=== PATIENT | male | born 1965 | race Caucasian/White ===

== ENCOUNTER 2020-12-27 15:31 | Outpatient (CLI) | payer OTHER, SELFPAY ==
--- NOTE | 2020-12-27 15:45 | USCV_ITS ---
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 Dr Deborah Robertson MD FAC (Electronically Signed) Final Date: 29 December 2020 08:43 S
== END 2020-12-27 15:32 | disposition home or self-care (01) ==
PROVIDERS: PCP Family Medicine; Visit Provider Podiatrist Foot & Ankle Surgery
DX: R09.89 Other specified symptoms and signs involving the circulatory and respiratory systems (principal)
CPT/HCPCS: 93923

== ENCOUNTER 2021-03-07 09:32 | Outpatient (CLI) | payer OTHER, SELFPAY ==
--- NOTE | 2021-03-07 09:35 | CT_ITS ---
WS: [id number] NONCONTRAST CT OF THE RIGHT LOWER EXTREMITY TECHNIQUE: Noncontrast CT right lower extremity with coronal and sagittal reformatted images. CLINICAL INFORMATION: LOWER LEG PAIN/SWELLING COMPARISON: None. DLP: 1084.[address] scans at [facility] use at least one of these dose optimization techniques: automated e xposure control; mA and/or kV adjustment per patient size (includes targeted exams where dose is matc hed to clinical indication); or iterative reconstruction. FINDINGS: Mild soft tissue edema with subcutaneous induration and inflammatory stranding in the anterior lower leg soft tissues overlying the tibia. This extends from the patella to the ankle. No evidence of drai nable abscess or fluid collection. Findings compatible with cellulitis. Mild associated skin thickeni ng. Minimal induration and inflammatory stranding in the posterior lower leg soft tissues. No evidenc e of osteomyelitis. Normal medial and lateral malleolus. Normal tibiotalar joint. CT/CT lower leg RT wo con* [id number] IMPRESSION: 1. Subcutaneous induration with inflammatory stranding in the anterior subcuta neous soft tissues extending from the patella to the ankle compatible with cell ulitis. No evidence of drainable abscess or fluid collection. 2. Small amount of cellulitis in the dorsal lower leg soft tissues. 3. No evidence of osteomyelitis. 4. No other significant findings.
== END 2021-03-07 09:33 | disposition home or self-care (01) ==
LOC: RAD 09:33
PROVIDERS: PCP Family Medicine; Visit Provider Family Medicine
DX: M79.661 Pain in right lower leg (principal); M79.89 Other specified soft tissue disorders; L03.115 Cellulitis of right lower limb
CPT/HCPCS: 73700

== ENCOUNTER 2022-06-05 08:52 | Emergency (ER) | payer OTHER, SELFPAY ==
[2022-06-05 09:05] VITALS: BP 147/93; PULSE 69; RESP 18; TEMP 36.6; O2SAT 99
--- NOTE | 2022-06-05 09:33 | ECG_ITS ---
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 Measurements Intervals [place] Rate: 60 P: 22 NC: 142 QRS: -16 QRSD: 96 T: 3 QT: 456 QTc: 456 Interpretive Statements SINUS RHYTHM POSSIBLE RIGHT VENTRICULAR CONDUCTION DELAY [RSR (QR) IN V1/V2] VOLTAGE CRITERIA FOR LVH [MEETS CRITERIA IN ONE OF: R(aVL), S(V1), R(V5), R(V5/V6)+S(V1)] No previous ECG available for comparison Electronically Signed On 06-05-2022 10:10:27 CDT by Cristobal Mcfarland M.D. [id number]
--- NOTE | 2022-06-05 09:38 | USCV_ITS ---
Brian Amadou Age: 57 Gender: M : 1965 Exam Date: 06/05/2022 10:26 Ordering Phys: Ayad Lujan DO Technologist: CT Exam Location: [facility] – [place]_ Indication: PROCEDURES: Venous duplex imaging was performed in only the right lower extremity. The following venous structures were evaluated: common femoral vein, profunda vein, proximal portion of the greater saphenous vein, superficial femoral vein, and the popliteal vein. In addition, the posterior tibial and peroneal trunk were evaluated. On the left side, the common femoral, superficial femoral, profunda femoral, popliteal, posterior tibial, greater saphenous veins, and the peroneal trunk were identified and interrogated in the standard fashion. These veins were found to be easily compressible with spontaneous blood flow. No evidence of insufficiency or thrombus noted. CONCLUSIONS No evidence of right lower extremity DVT. Cory Navarro MD (Electronically Signed) Final Date: 05 June 2022 11:27 S
[2022-06-05 09:59] LABS: Basophils # 0.1 10^3/uL (0.0-0.1); Basophils % 0.7 %; Eosinophils % 0.4 %; Hematocrit 45.3 % (42.0-52.0); Hemoglobin 15.6 g/dL (11.7-16.6); Lymphocytes # 1.5 10^3/uL (0.8-4.8); Lymphocytes % 18.8 %; Mean Corpuscular HGB Conc 34.4 g/dL (30.0-36.0); Mean Corpuscular Hemoglobin 30.4 pg (28.0-34.0); Mean Corpuscular Volume 88.1 fl (80-94); Mean Platelet Volume 10.3 fL (7.4-10.4); Monocytes # 0.8 10^3/uL (0.2-0.9); Monocytes % 10.1 %; Neutrophils % 69.6 %; Nucleated Red Blood Cells % 0 %; Platelet Count 274 10^3/cmm (130-400); Red Blood Count 5.14 10^6/uL (4.1-5.3); Red Cell Distribution Width 12.4 % (12.1-15.1)
[2022-06-05] MEDS: sodium chloride 0.9% 1,000 ML 999 ML IV (10:11)
[2022-06-05] MEDS: ondansetron 2 mg/ML SDV 2 mL 4 MG IVP (10:11)
--- NOTE | 2022-06-05 10:21 | ED_ITS ---
HPI - Dizziness General: Chief Complaint: Dizziness Stated Complaint: nauseas/lethargy/cant eat/drink Time Seen by Provider: 06/05/22 08:54 Source: patient Mode of arrival: ambulatory History of Present Illness: HPI Narrative: 57-year-old male presents to the emergency room with complaints of nausea vomi ting diarrhea that began a couple of days ago according to the patient. 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 He was being treated for his cellulitis of the right lower leg. He had been given a prescription for Bactrim advised to take it if he felt like the cellulitis was returning. He has not noticed redness inflammation or induration but has noticed some swelling of the lower extremity. He is not currently had any orthopnea MD elicited complaint: lightheadedness Onset (ago): day(s) Timing: gradual onset Exacerbating factors: nothing Relieving factors: nothing Associated symptoms: Denies abnormal vaginal bleeding, change in hearing, chest pain, chills, cough, diaphoresis, ear discharge, ear pressure, fevers/chills, headache(s), malaise, nausea, nasal congestion, palpitations, rash, short of breath, syncope, tinnitus, vomiting or weakness Review of Systems Const: Denies: fever(s), chills, malaise or diaphoresis ENMT: Denies: ear discharge, change in hearing, tinnitus or nasal congestion Card: Denies: chest pain, palpitations or syncope Resp: Denies: dyspnea, productive cough or non-productive cough GI: Denies: nausea or vomiting : Denies: flank pain, dysuria, urinary frequency or urinary urgency Skin/Breast: Denies: rash or pruritus Neuro: Denies: headache(s) PFSH ED PFSH: Medical History Enthesopathy of left hip region Hypertension Lumbar post-laminectomy syndrome Peripheral polyneuropathy Venous stasis dermatitis of right lower extremity Social History Smoking and tobacco status: never smoked Physical Exam Const: GENERAL APPEARANCE: cooperative and comfortable ORIENTATION/CONSCIOUSNESS: Yes awake, Yes oriented to person, Yes oriented to place and Yes oriented to time HENMT: COMMON NORMALS: normocephalic, atraumatic and hearing grossly normal bilaterally HEAD & SCALP: normocephalic and atraumatic Resp: COMMON NORMALS: normal respiratory effort, No retractions, No use of accessory muscles and clear to auscultation bilaterally AUSCULTATION: clear to auscultation bilaterally Cardio: COMMON NORMALS: regular rate, regular rhythm and No murmurs present (Cardio) RATE: regular rate RHYTHM: regular rhythm GI: COMMON NORMALS: Soft to palpation and No hepatosplenomegaly present AUSCULTATION: Yes normoactive bowel sounds PALPATION: Yes Soft to palpation, No Tenderness to palpation present (GI), No Guarding due to palpation present (GI) and Yes No hepatosplenomegaly present Extremity: COMMON NORMALS: normal to inspection, capillary refill normal and no calf tenderness OTHER: Mild edema right lower leg. No induration no redness is not warm to the touch Neuro: SENSORIUM/ORIENTATION: Yes oriented to person, Yes oriented to place and Yes oriented to time Skin: COMMON NORMALS: no rashes or lesions noted GENERAL SKIN EXAM: no rashes or lesions noted Course Vital Signs: Vital signs: Vital Signs Temperature 98 F 06/05/22 09:05 Pulse Rate 75 06/05/22 13:47 Respiratory Rate 15 06/05/22 13:47 Blood Pressure 158/91 06/05/22 13:47 Pulse Oximetry 94 06/05/22 13:47 Oxygen Delivery Me thod Room Air 06/05/22 09:05 MDM - Dizziness Medical Decision Making Patient complaining nausea dizziness. Decreased appetite and some diarrhea. Suspect it may be in part due to his antibiotics. CBC is unremarkable CMP negative. He does have urinary retention of 300 in his bladder after voiding. Medical Records I reviewed the patient's medical records. Lab Data I reviewed the patient's lab results. 06/05/22 09:44 06/05/22 09:44 Laboratory Results WBC 8.0 10^3/uL (4.0-10.0) 06/05/22 09:44 RBC 5.14 10^6/uL (4.1-5.3) 06/05/22 09:44 Hgb 15.6 g/dL (11.7-16.6) 06/05/22 09:44 Hct 45.3 % (42.0-52.0) 06/05/22 09:44 MCV 88.1 fl (80-94) 06/05/22 09:44 MCH 30.4 pg (28.0-34.0) 06/05/22 09:44 MCHC 34.4 g/dL (30.0-36.0) 06/05/22 09:44 RDW 12.4 % (12.1-15.1) 06/05/22 09:44 Plt Count 274 10^3/cmm (130-400) 06/05/22 09:44 MPV 10.3 fL (7.4-10.4) 06/05/22 09:44 Neut % (Auto) 69.6 % 06/05/22 09:44 Lymph % (Auto) 18.8 % 06/05/22 09:44 [place] % (Auto) 10.1 % 06/05/22 09:44 Eos % (Auto) 0.4 % 06/05/22 09:44 Baso % (Auto) 0.7 % 06/05/22 09:44 Neut # (Auto) 5.60 10^3/uL (1.8-7.7) 06/05/22 09:44 Lymph # (Auto) 1.5 10^3/uL (0.8-4.8) 06/05/22 09:44 [place] # (Auto) 0.8 10^3/uL (0.2-0.9) 06/05/22 09:44 Eos # (Auto) 0.0 10^3/uL (0.0-0.8) 06/05/22 09:44 Baso # (Auto) 0.1 10^3/uL (0.0-0.1) 06/05/22 09:44 Nucleated RBC % (auto) 0 % 06/05/22 09:44 Nucleated RBCs # 0.0 /100WBC 06/05/22 09:44 Sodium 135 mmol/L (136-145) L 06/05/22 09:44 Potassium 4.0 mmol/L (3.5-5.1) 06/05/22 09:44 Chloride 99 mmol/L (98-107) 06/05/22 09:44 Carbon Dioxide 22 mmol/L (22-29) 06/05/22 09:44 Anion Gap 18.0 (5-19) 06/05/22 09:44 BUN 13 mg/dL (6-20) 06/05/22 09:44 Creatinine 1.1 mg/dL (0.7-1.2) 06/05/22 09:44 GFR Calculation 68.5 mL/min (90-130) L 06/05/22 09:44 Glucose 100 mg/dL (65-115) 06/05/22 09:44 Calculated Osmolality 280 mOsm/kg (285-295) L 06/05/22 09:44 Calcium 9.0 mg/dL (8.5-10.5) 06/05/22 09:44 Total Bilirubin 0.4 mg/dL (0.15-1.2) 06/05/22 09:44 AST 18 U/L (0-40) 06/05/22 09:44 ALT 17 U/L (0-41) 06/05/22 09:44 Alkaline Phosphatase 91 U/L (40-130) 06/05/22 09:44 Total Protein 7.2 g/dL (6.6-8.7) 06/05/22 09:44 Albumin 4.5 g/dL (3.5-5.2) 06/05/22 09:44 Globulin 2.7 g/dL (1.3-4.6) 06/05/22 09:44 Urine Color Yellow (Yellow) 06/05/22 13:00 Urine Appearance Hazy (CLEAR) A 06/05/22 13:00 Urine pH 6 (5-7) 06/05/22 13:00 Ur Specific [employer] 1.010 (1.005-1.030) 06/05/22 13:00 Urine Protein Neg (Negative) 06/05/22 13:00 Urine Glucose (UA) Norm (Normal) 06/05/22 13:00 Urine Ketones 1+ (Negative) H 06/05/22 13:00 Urine Blood Neg (Negative) 06/05/22 13:00 Urine Nitrate Positive (Negative) H 06/05/22 13:00 Urine Bilirubin Neg (Negative) 06/05/22 13:00 Urine Urobilinogen 1 mg/dL (Negative) H 06/05/22 13:00 Ur Leukocyte Esterase Trace (Negative) H 06/05/22 13:00 Urine RBC Rare /hpf (0-2) 06/05/22 13:00 Urine WBC 15-25 /hpf (0-5) H 06/05/22 13:00 Ur Squamous Epith Cells 0-4 /hpf (0-5) H 06/05/22 13:00 Amorphous Sediment Not Reportable 06/05/22 13:00 Urine Bacteria 4+ /hpf (NONE) H 06/05/22 13:00 Discharge Plan Discharge Patient Disposition: Home Clinical Impression: Urinary retention, Cellulitis of right lower leg, Leg edema, right Condition: Stable Prescriptions: New doxycycline hyclate 100 mg capsule 100 mg PO BID 10 Days Qty: 20 0RF tamsulosin 0.4 mg capsule 0.4 mg PO DAILY Qty: 30 0RF Discontinued sulfamethoxazole-trimethoprim [Bactrim DS] 800-160 mg tablet 1 tab PO Q12H 10 Days Qty: 20 5RF No Action tramadol 50 mg tablet 50 mg PO TID PRN (Reason: Pain) (DME) AFO to the right See Rx Instructions .Route .MEDSUPPLY Qty: 1 0RF Rx Instructions: As directed Alpha & [place] silver sulfadiazine [Silvadene] 1 % cream 1 applic topical BID Qty: 50 0RF Rx Instructions: apply a 1.5 mm thickness clotrimazole 1 % cream 1 applic topical BID 14 Days Qty: 15 5RF meloxicam 7.5 mg tablet 7.5 mg PO DAILY omeprazole 20 mg Capsule,Delayed Release(Dr/Ec) 20 mg PO DAILY Lasix 20 mg Tablet 20 mg PO DAILY Cymbalta 60 mg Capsule,Delayed Release(Dr/Ec) 60 mg PO DAILY Bystolic 10 mg tablet 10 mg PO DAILY Discharge Orders: Discharge ED (Routine); Ordered 06/05/22 Ordered By: Ayad Lujan Referrals: Angel Lee DO [Primary Care Provider] - Discharge Diet: Usual diet Discharge Activity: Increase activity as tolerated Patient Instructions: Opioid Safety, Pain Management Activity Restrictions/Additional Instructions: You were seen for generally not feeling well. Recommend that he stop the Bactrim and switch to doxycycline follow-up with your doctor within the next week. You also had urinary retention recommend that you use the [place] leave it in place for at least a week start tamsulosin and follow-up with your doctor. Return if you have further problems. Coding Level of Care Code ED [employer] Executive for Nikki Matute
[2022-06-05 10:22] LABS: Alanine Aminotransferase 17 U/L (0-41); Albumin Level 4.5 g/dL (3.5-5.2); Alkaline Phosphatase 91 U/L (40-130); Aspartate Amino Transferase 18 U/L (0-40); Blood Urea Nitrogen 13 mg/dL (6-20); Carbon Dioxide 22 mmol/L (22-29); Chloride 99 mmol/L (98-107); Globulin 2.7 g/dL (1.3-4.6); Glomerular Filtration Rate 68.5 mL/min (90-130); Glucose 100 mg/dL (65-115); Osmolality Calculated 280 mOsm/kg (285-295); Sodium 135 mmol/L (136-145); Total Bilirubin 0.4 mg/dL (0.15-1.2); Total Protein 7.2 g/dL (6.6-8.7)
[2022-06-05 11:09] VITALS: BP 148/105; PULSE 72; RESP 16; O2SAT 99
[2022-06-05 12:09] VITALS: BP 146/85; PULSE 62; RESP 16; O2SAT 97
[2022-06-05 13:09] VITALS: BP 146/99; PULSE 75; RESP 18; O2SAT 98
[2022-06-05 13:33] LABS: Blood Urine Neg (Negative); Glucose Urine UA Norm (Normal); Ketones Urine 1+ (Negative); Nitrate Urine Positive (Negative); Protein Urine Neg (Negative); Urine Appearance Hazy (CLEAR); Urine Color Yellow (Yellow); pH Urine 6 (5-7)
[2022-06-05 13:34] LABS: Add Urine Microscopic? YES; Bilirubin Urine Neg (Negative); Leukocyte Esterase Urine Trace (Negative); Urobilinogen Urine 1 mg/dL (Negative)
[2022-06-05 13:35] LABS: Add Urine Culture? Yes; Bacteria Urine 4+ /hpf; RBC Urine RARE /hpf (0-2); Squamous Epithelial Cell Urine 0-4 /hpf (0-5); WBC Urine 15-25 /hpf (0-5)
[2022-06-05 13:47] VITALS: BP 158/91; PULSE 75; RESP 15; O2SAT 94
--- NOTE | 2022-06-06 09:25 | DCPLANNER ---
Addendum entered by Paulina Sheth 06/06/22 13:01: Patient has a follow up appointment scheduled for June at 8:[address] Bennett at urology. Original Note: manager latin had message to schedule a follow up appointment for patient with urology. manager latin sent patients information to the front office staff at urology. Patients information will be printed and reviewed. Clinic will call patient with appointment information.
== END 2022-06-05 13:49 | disposition home or self-care (01) ==
PROVIDERS: Emergency Provider Family Medicine; PCP Family Medicine
DX: R33.9 Retention of urine, unspecified (principal); L03.115 Cellulitis of right lower limb; R60.0 Localized edema; I10 Essential (primary) hypertension
CPT/HCPCS: 36415; 51702; 80053; 81001; 85025; 87077; 87086; 87186; 93005; 93971; 96361; 96374; 99285; J2405; J7030

== ENCOUNTER → 2023-11-04 09:17 | Outpatient (BNVA) | payer OTHER, SELFPAY | PROVIDERS: PCP Family Medicine; Visit Provider Family Medicine | DX: R35.0 Frequency of micturition (principal) | CPT/HCPCS: 81000 ==

== ENCOUNTER → 2024-02-20 09:45 | Outpatient (BNVA) | payer OTHER, SELFPAY | PROVIDERS: PCP Nurse Practitioner Family; Visit Provider Nurse Practitioner Family | DX: M54.9 Dorsalgia, unspecified (principal); G89.29 Other chronic pain; Z98.1 Arthrodesis status; Z87.81 Personal history of (healed) traumatic fracture; I10 Essential (primary) hypertension; B02.23 Postherpetic polyneuropathy; B02.29 Other postherpetic nervous system involvement; G62.9 Polyneuropathy, unspecified; M54.50 Low back pain, unspecified; M79.605 Pain in left leg | CPT/HCPCS: 80053; 80061 ==

== ENCOUNTER → 2024-09-09 08:30 | Outpatient (BNVA) | payer OTHER, SELFPAY | PROVIDERS: PCP Nurse Practitioner Family; Visit Provider Nurse Practitioner Family | DX: R73.09 Other abnormal glucose (principal); I10 Essential (primary) hypertension | CPT/HCPCS: 80061; 83036 ==